=== PATIENT | male | born 1970 | race Two or more races ===

== ENCOUNTER 2020-10-18 10:19 | Outpatient (CLI) | payer OTHER ==
[2020-10-21] MEDS ORDERED: ACTOS PO (10:05)
[2020-10-21] MEDS ORDERED: FORTAMET500 MG PO (10:06)
[2020-10-21] MEDS ORDERED: [UNRECOGNIZED DRUG - OTHER] PO (10:07)
[2020-10-21] MEDS ORDERED: NOVOLIN 70100 UNIT/1 (10:08)
== END 2020-10-18 10:28 | disposition home or self-care (01) ==
LOC: LAB 10:19
PROVIDERS: ATTEND Colon & Rectal Surgery
DX: C20 Malignant neoplasm of rectum (principal); Z85.048 Personal history of other malignant neoplasm of rectum, rectosigmoid junction, and anus

== ENCOUNTER 2020-10-22 07:17 | Day surgery (SDC) | payer OTHER ==
[~2020-10-22 07:17] MED LIST: ACTOS PO; FORTAMET500 MG PO; NOVOLIN 70100 UNIT/1; [UNRECOGNIZED DRUG - OTHER] PO
== END 2020-10-22 15:20 | disposition home or self-care (01) ==
LOC: CIR.AMB 07:17
PROVIDERS: ATTEND Colon & Rectal Surgery
DX: C20 Malignant neoplasm of rectum (principal); Z20.828 Contact with and (suspected) exposure to other viral communicable diseases
CPT/HCPCS: 36561; C1751

== ENCOUNTER → 2021-05-15 08:00 | Outpatient (CLI) | payer OTHER | END | disposition home or self-care (01) | LOC: ADM 05-11 15:15 → LAB 08:00 → EDSTATUS 15:15 → AMB-ENDOS 15:15 | PROVIDERS: ATTEND Colon & Rectal Surgery | DX: C20 Malignant neoplasm of rectum (principal); Z03.818 Encounter for observation for suspected exposure to other biological agents ruled out; Z85.048 Personal history of other malignant neoplasm of rectum, rectosigmoid junction, and anus ==